=== PATIENT | female | born 1935 | race Caucasian/White ===

== ENCOUNTER → 2016-04-26 | Outpatient (CLI) | payer MEDICARE, OTHER | END | disposition home or self-care (01) | LOC: YCHH 10:40 | PROVIDERS: ATTEND Family Medicine | DX: D64.9 Anemia, unspecified (principal); E11.40 Type 2 diabetes mellitus with diabetic neuropathy, unspecified; E03.9 Hypothyroidism, unspecified ==

== ENCOUNTER → 2016-07-13 | Outpatient (CLI) | payer MEDICARE, OTHER | END | disposition home or self-care (01) | LOC: YCHH 11:24 | PROVIDERS: ATTEND Family Medicine | DX: I26.99 Other pulmonary embolism without acute cor pulmonale (principal); D53.9 Nutritional anemia, unspecified; E11.40 Type 2 diabetes mellitus with diabetic neuropathy, unspecified ==

== ENCOUNTER → 2016-12-22 | Outpatient (CLI) | payer MEDICARE, OTHER ==
--- NOTE | 2016-12-23 10:44 | MRI ---
EXAM DESCRIPTION: Lumbar Spine w/o Contrast CLINICAL HISTORY: 81 years, Female, LOW BACK PAIN COMPARISON: FINDINGS: Sagittal and axial sequences. Bone marrow has normal signal characteristics except for degenerative-type changes. Conus ends at about L1. The L2-3 disc space is narrowed which may be partial congenital fusion. Right lumbar curvature probably degenerative change. At T11-12 there is a small focal central disc protrusion. There is some soft tissue density extending below this level which is incompletely evaluated the study. This could be a normal vascular structure. However a small disc sequestration cannot excluded. At T12-L1 narrowing with about 2 mm of retrolisthesis. Bulging disc osteophyte asymmetric to the right. Small annular tear the bulging disc. Right foraminal narrowing. Facet degenerative change and left lateral recess encroachment. The L2-3 disc is narrowed which may be congenital fusion. Small left-sided spur slightly narrows left exit foramen. At L3-4 , narrowing with right lateral bulging disc osteophyte. Facet degenerative change. Right foraminal narrowing. At L4-5 mild bulging disc asymmetric to the right. Facet degenerative change. Mild right foraminal narrowing and lateral recess encroachment. At L5-S1 mild bulging disc and facet degenerative change. IMPRESSION: 1. Multilevel degenerative disc disease. There may be congenital fusion at L2-3. Right lumbar curvatures probably due to degenerative change 2. Narrowing L4-5 with bulging disc asymmetric to the right. Right foraminal narrowing and lateral recess encroachment 3. Retrolisthesis T12-L1 with bulging disc osteophyte asymmetric to the right. Small annular tear bulging disc. Right foraminal narrowing. Left lateral recess encroachment. 4. Small focal central disc protrusion T11-12. Possible slight sequestration below the disc space. This thoracic interspace is incompletely evaluated on this lumbar spine study. Other disc changes present as discussed above Electronically signed by: Jose Armando Begum MD 12/23/2016 10:43 AM CDT
== END ==
LOC: MRI 15:15
PROVIDERS: ATTEND Family Medicine
DX: M51.36 Other intervertebral disc degeneration, lumbar region (principal); M43.16 Spondylolisthesis, lumbar region; M51.24 Other intervertebral disc displacement, thoracic region

== ENCOUNTER → 2017-02-22 | Outpatient (CLI) | payer MEDICARE, OTHER | END | disposition home or self-care (01) | LOC: GMAB 11:48 | PROVIDERS: ATTEND Family Medicine | DX: E03.9 Hypothyroidism, unspecified (principal) ==

== ENCOUNTER → 2017-03-11 | Outpatient (CLI) | payer MEDICARE, OTHER | END | disposition home or self-care (01) | LOC: GMAB 10:42 | PROVIDERS: ATTEND Family Medicine | DX: E53.8 Deficiency of other specified B group vitamins (principal); I26.99 Other pulmonary embolism without acute cor pulmonale ==

== ENCOUNTER → 2017-04-18 | Outpatient (CLI) | payer MEDICARE, OTHER | LOC: YCHH 13:17 | PROVIDERS: ATTEND Family Medicine | DX: N18.9 Chronic kidney disease, unspecified (principal); E11.9 Type 2 diabetes mellitus without complications ==

== ENCOUNTER → 2017-08-03 | Outpatient (CLI) | payer MEDICARE, OTHER | LOC: YCHH 09:03 | PROVIDERS: ATTEND Family Medicine | DX: E11.40 Type 2 diabetes mellitus with diabetic neuropathy, unspecified (principal); D64.9 Anemia, unspecified; M17.0 Bilateral primary osteoarthritis of knee; K58.2 Mixed irritable bowel syndrome ==

== ENCOUNTER → 2018-03-22 | Outpatient (CLI) | payer MEDICARE, OTHER | LOC: GMAE 15:00 | PROVIDERS: ATTEND Family Medicine | DX: R45.84 Anhedonia (principal); F32.1 Major depressive disorder, single episode, moderate; E55.9 Vitamin D deficiency, unspecified; R53.1 Weakness; E53.8 Deficiency of other specified B group vitamins ==

== ENCOUNTER → 2018-05-18 | Outpatient (CLI) | payer MEDICARE, OTHER | LOC: GMAE 14:35 | PROVIDERS: ATTEND Family Medicine | DX: E55.9 Vitamin D deficiency, unspecified (principal) ==

== ENCOUNTER → 2018-06-28 | Outpatient (CLI) | payer MEDICARE, OTHER | LOC: GMAE 10:50 | PROVIDERS: ATTEND Family Medicine | DX: E53.8 Deficiency of other specified B group vitamins (principal) ==

== ENCOUNTER → 2019-04-02 | Outpatient (CLI) | payer MEDICARE, OTHER | LOC: LAB.NP 11:36 | PROVIDERS: ATTEND Family Medicine | DX: E11.40 Type 2 diabetes mellitus with diabetic neuropathy, unspecified (principal); D64.9 Anemia, unspecified; I10 Essential (primary) hypertension; E78.5 Hyperlipidemia, unspecified; E03.9 Hypothyroidism, unspecified ==

== ENCOUNTER → 2019-06-05 | Outpatient (CLI) | payer MEDICARE, OTHER | LOC: YCHH 16:46 | PROVIDERS: ATTEND Family Medicine | DX: R30.0 Dysuria (principal) ==

== ENCOUNTER → 2019-09-21 | Outpatient (CLI) | payer MEDICARE, OTHER | LOC: YCHH 09:47 | PROVIDERS: ATTEND Family Medicine | DX: D64.9 Anemia, unspecified (principal); E11.9 Type 2 diabetes mellitus without complications; N39.0 Urinary tract infection, site not specified; N18.9 Chronic kidney disease, unspecified ==

== ENCOUNTER → 2019-10-17 | Outpatient (CLI) | payer MEDICARE, OTHER | LOC: YCHH 11:07 | PROVIDERS: ATTEND Family Medicine | DX: R79.89 Other specified abnormal findings of blood chemistry (principal); D64.9 Anemia, unspecified; E11.42 Type 2 diabetes mellitus with diabetic polyneuropathy; E72.11 Homocystinuria; D51.9 Vitamin B12 deficiency anemia, unspecified ==

== ENCOUNTER → 2020-01-23 | Outpatient (CLI) | payer MEDICARE, OTHER | LOC: YCHH 11:57 | PROVIDERS: ATTEND Family Medicine | DX: E11.42 Type 2 diabetes mellitus with diabetic polyneuropathy (principal); R79.89 Other specified abnormal findings of blood chemistry ==

== ENCOUNTER → 2020-03-12 | Outpatient (CLI) | payer MEDICARE, OTHER | LOC: YCHH 14:12 | PROVIDERS: ATTEND Family Medicine | DX: R79.89 Other specified abnormal findings of blood chemistry (principal) ==

== ENCOUNTER → 2020-03-18 | Outpatient (CLI) | payer MEDICARE, OTHER | LOC: YCHH 11:20 | PROVIDERS: ATTEND Family Medicine | DX: N39.0 Urinary tract infection, site not specified (principal) ==